=== PATIENT | female | born 1940 | race Caucasian/White ===

== ENCOUNTER 2019-06-14 15:52 | Outpatient (CLI) | payer MEDICARE ==
--- NOTE | 2019-06-14 16:48 | CT ---
CT HEAD WITHOUT IV CONTRAST COMPARISON: None HISTORY: Frequent headaches over the last 9 months. History of migraine headaches. TECHNIQUE: Axial CT imaging at 5 mm intervals from vertex through skull base without contrast FINDINGS: There is mild cerebral and cerebellar volume loss. There is no evidence of an acute infarction, hemor rhage, mass effect, or midline shift. The ventricular system is normal in size, shape, and position. Visualized paranasal sinuses are clear. Osseous structures appear intact. IMPRESSION: 1. No acute intracranial abnormality demonstrated. 2. Mild cerebral and cerebellar volume loss.
== END 2019-06-14 15:53 | disposition home or self-care (01) ==
LOC: SCSCT 15:52
PROVIDERS: ATTEND Psychiatry & Neurology Neurology
DX: G63 Polyneuropathy in diseases classified elsewhere (principal)
CPT/HCPCS: 36415; 70450; 85652

== ENCOUNTER 2023-03-20 22:03 | Emergency (ER) | payer OTHER | END 2023-03-21 00:09 | disposition home or self-care (01) | LOC: ERS 22:03 | DX: R11.2 Nausea with vomiting, unspecified (principal); I48.91 Unspecified atrial fibrillation; E78.5 Hyperlipidemia, unspecified; Z79.82 Long term (current) use of aspirin; Z79.899 Other long term (current) drug therapy | CPT/HCPCS: 93005 ==

== ENCOUNTER 2023-04-24 17:03 | Inpatient (IN) | payer OTHER ==
[2023-04-24] MEDS ORDERED: Ipratropium/Albuterol 3 ML NEB NEB PRN (17:36)
[2023-04-24] MEDS ORDERED: Sodium Chloride 0.9% 1,000 ML IV SCH ×2 (17:45)
[2023-04-24 21:19] LABS: #Eosinphils 0.1 thou/uL (0.0-0.7); #Monocytes 0.7 thou/uL (0.11-0.59); #Neutrophils 4.8 thou/uL (1.40-6.50); %Basophils 0.1 % (0.0-1.0); %Eosinophils 0.7 % (0.0-10.0); %Lymphocytes 19.7 % (21.0-51.0); %Monocytes 10.1 % (0.0-10.0); %Neutrophils 69.1 % (42.0-75.0); Hematocrit 36.2 % (36.0-47.0); Hemoglobin 12.1 g/dL (12.0-16.0); Mean Corpuscular HGB CONC 33.4 g/dL (32.0-36.0); Mean Corpuscular Hemoglobin 30.6 pg (27.0-31.0); Mean Corpuscular Volume 91.4 fl (78.0-98.0); Mean Platelet Volume 9.8 fL (7.4-10.4); Platelet Count 254 10x3/uL (130-400); RBC Distribution Width 13.8 % (11.5-14.5); Red Blood Cell (RBC) Count 3.96 mill/uL (4.20-5.40); White Blood Cell (WBC) Count 6.9 10x3/uL (4.8-10.8)
[2023-04-24] MEDS: Acetaminophen 500 MG TAB PO SCH (21:30)
[2023-04-24 21:33] LABS: INR-International Normal Ratio 1.2; PTT 28.2 sec (22.9-36.1); Prothrombin Time 15.9 sec (12.0-14.7)
[2023-04-24 21:40] LABS: Anion Gap 11 mmol/L (10-20); BUN (Urea Nitrogen) 13 mg/dL (9.8-20.1); Calc. Creatinine Clearance 0 mL/min (70-130); Calcium 8.5 mg/dL (7.8-10.44); Carbon Dioxide 23 mmol/L (23-31); Chloride 110 mmol/L (98-107); Estimated GFR 82; Glucose 159 mg/dL (83-110); Potassium 3.3 mmol/L (3.5-5.1); Sodium 141 mmol/L (136-145)
[2023-04-24] MEDS: Senokot S 8.6-50 MG TAB PO SCH (21:58)
[2023-04-24 22:06] VITALS: BMI 21.8
[2023-04-24] MEDS: Potassium Chloride 20 MEQ in Premix 1 BAG IVPB SCH (22:51)
[2023-04-24 23:21] LABS: Magnesium 2.1 mg/dL (1.6-2.6); Phosphorus 3.2 mg/dL (2.3-4.7)
[2023-04-25] MEDS: Potassium Chloride 20 MEQ in Premix 1 BAG IVPB SCH (01:02)
[2023-04-25 05:16] LABS: #Eosinphils 0.1 thou/uL (0.0-0.7); #Monocytes 0.9 thou/uL (0.11-0.59); #Neutrophils 3.5 thou/uL (1.40-6.50); %Basophils 0.1 % (0.0-1.0); %Eosinophils 1.3 % (0.0-10.0); %Lymphocytes 35.5 % (21.0-51.0); %Monocytes 12.3 % (0.0-10.0); %Neutrophils 50.7 % (42.0-75.0); Hematocrit 38.2 % (36.0-47.0); Hemoglobin 12.5 g/dL (12.0-16.0); Mean Corpuscular HGB CONC 32.7 g/dL (32.0-36.0); Mean Corpuscular Hemoglobin 30.3 pg (27.0-31.0); Mean Corpuscular Volume 92.7 fl (78.0-98.0); Mean Platelet Volume 10.2 fL (7.4-10.4); Platelet Count 284 10x3/uL (130-400); Red Blood Cell (RBC) Count 4.12 mill/uL (4.20-5.40)
[2023-04-25 05:38] LABS: Anion Gap 10 mmol/L (10-20); BUN (Urea Nitrogen) 11 mg/dL (9.8-20.1); Calc. Creatinine Clearance 55 mL/min (70-130); Calcium 8.5 mg/dL (7.8-10.44); Carbon Dioxide 24 mmol/L (23-31); Chloride 109 mmol/L (98-107); Estimated GFR 84; Glucose 91 mg/dL (83-110); Potassium 4.2 mmol/L (3.5-5.1); Sodium 139 mmol/L (136-145)
[2023-04-25 05:41] LABS: Phosphorus 3.4 mg/dL (2.3-4.7)
[2023-04-25] MEDS: Acetaminophen 500 MG TAB PO SCH ×3 (06:20→17:38)
[2023-04-25] MEDS: Bismuth SubsALICYLATE 30 ML(17.5 mg/mL) Susp PO PRN ×3 (08:28→21:43)
[2023-04-25] MEDS: Polyethylene Glycol 3350 17 GM Packet PO SCH (08:32)
[2023-04-25] MEDS: Senokot S 8.6-50 MG TAB PO SCH ×2 (08:32→21:43)
[2023-04-25] MEDS: Scopolamine 1 mg/72 hour Patch TOP SCH ×2 (08:32→12:51)
[2023-04-25] MEDS: Dexamethasone 4 mg/ml Vial SLOW IVP SCH ×2 (17:38→21:43)
[2023-04-25] MEDS ORDERED: Gabapentin 300 MG CAP PO SCH (21:00)
[2023-04-26] MEDS: Acetaminophen 500 MG TAB PO SCH ×5 (00:54→23:48)
[2023-04-26] MEDS ORDERED: Dexamethasone 4 mg/ml Vial ONE (06:50)
[2023-04-26] MEDS: Dexamethasone 4 mg/ml Vial SLOW IVP SCH (06:51)
[2023-04-26] MEDS ORDERED: Lorazepam 0.5 MG TAB PO PRN (08:47)
[2023-04-26] MEDS ORDERED: Alendronate Sodium 70 mg Tablet PO SCH (09:00)
[2023-04-26] MEDS: Scopolamine 1 mg/72 hour Patch TOP SCH (09:17)
[2023-04-26] MEDS: Gabapentin 300 MG CAP PO SCH ×2 (09:17→21:36)
[2023-04-26] MEDS: Senokot S 8.6-50 MG TAB PO SCH ×2 (09:18→21:36)
[2023-04-26] MEDS: Polyethylene Glycol 3350 17 GM Packet PO SCH (09:18)
[2023-04-26] MEDS ORDERED: Dexamethasone 4 mg/ml Vial SLOW IVP SCH (12:00)
[2023-04-26] MEDS: Dexamethasone 4 MG TAB PO SCH ×3 (12:55→23:48)
[2023-04-27] MEDS: Acetaminophen 500 MG TAB PO SCH ×4 (06:03→23:39)
[2023-04-27] MEDS: Dexamethasone 4 MG TAB PO SCH (06:03)
[2023-04-27] MEDS ORDERED: FLU VACC QS2023(65UP)/MF59C/PF 60 MCG/0.5 ML SYRINGE IM ONE (09:00)
[2023-04-27] MEDS: Senokot S 8.6-50 MG TAB PO SCH ×2 (09:21→20:32)
[2023-04-27] MEDS: Gabapentin 300 MG CAP PO SCH ×2 (09:21→20:32)
[2023-04-27] MEDS: Polyethylene Glycol 3350 17 GM Packet PO SCH (09:21)
[2023-04-27] MEDS: Scopolamine 1 mg/72 hour Patch TOP SCH (09:24)
[2023-04-28] MEDS: Acetaminophen 500 MG TAB PO SCH ×4 (05:06→23:57)
[2023-04-28] MEDS: Polyethylene Glycol 3350 17 GM Packet PO SCH (08:11)
[2023-04-28] MEDS: Gabapentin 300 MG CAP PO SCH ×2 (08:11→20:35)
[2023-04-28] MEDS: Senokot S 8.6-50 MG TAB PO SCH ×2 (08:11→20:36)
[2023-04-29] MEDS: Acetaminophen 500 MG TAB PO SCH ×2 (04:50→12:20)
[2023-04-29 08:20] VITALS: TEMP 97.6
[2023-04-29] MEDS: Gabapentin 300 MG CAP PO SCH (08:26)
[2023-04-29] MEDS: Polyethylene Glycol 3350 17 GM Packet PO SCH (08:27)
[2023-04-29] MEDS: Senokot S 8.6-50 MG TAB PO SCH (08:28)
[2023-04-29 12:37] VITALS: BP 94/64
== END 2023-04-29 13:45 | disposition swing bed (61) | DRG 87 ==
LOC: ERS 17:03 → CCU 17:36 → SURG A 04-25 16:04
PROVIDERS: ADMIT Specialist; ATTEND Specialist
DX: S06.5X0A Traumatic subdural hemorrhage without loss of consciousness, initial encounter (principal); S06.0X0A Concussion without loss of consciousness, initial encounter; W18.30XA Fall on same level, unspecified, initial encounter; Z88.8 Allergy status to other drugs, medicaments and biological substances; Z88.1 Allergy status to other antibiotic agents; Z88.2 Allergy status to sulfonamides; I10 Essential (primary) hypertension; I25.10 Atherosclerotic heart disease of native coronary artery without angina pectoris; I48.91 Unspecified atrial fibrillation; Z90.49 Acquired absence of other specified parts of digestive tract; Z90.710 Acquired absence of both cervix and uterus; Z95.1 Presence of aortocoronary bypass graft; Z90.89 Acquired absence of other organs; Z98.890 Other specified postprocedural states; Z85.3 Personal history of malignant neoplasm of breast; Z79.899 Other long term (current) drug therapy
CPT/HCPCS: 36415; 70450; 72125; 80048; 83735; 84100; 85025; 86850; 86900; 86901; 99285; J1100; J3480; J7050; J8540